=== PATIENT | male | born 1985 | race Caucasian/White ===

== ENCOUNTER 2016-08-20 20:30 | Emergency (ER) | payer SELFPAY ==
[~2016-08-20] VITALS: Ht 177.8 cm; Wt 72.0 kg
[2016-08-20 20:32] VITALS: BP 135/77; PULSE 89; RESP 16; TEMP 98.1; O2SAT 98
[2016-08-20] MEDS ORDERED: ACETAMINOPHEN/CODEINE 300 MG/30 MG TAB PO ONE (23:00)
[2016-08-20] MEDS ORDERED: PENICILLIN V POTASSIUM 500 MG TAB PO ONE (23:00)
[2016-08-20] MEDS ORDERED: IBUPROFEN 800 MG TAB PO ONE (23:00)
[2016-08-20] MEDS ORDERED: IBUP800T23 PO (23:01)
[2016-08-20] MEDS ORDERED: MAGICADU2 SWISH-SPIT (23:01)
[2016-08-20] MEDS ORDERED: PENI500T PO (23:01)
--- NOTE | 2016-08-20 23:07 | PD ---
HPI Chief Complaint: Oral / Dental Pain or Problem Time Seen by Provider: 22:58 Travel History International Travel<30 days: No Contact w/Intl Traveler<30days: No Traveled to known affect area: No History of Present Illness HPI 30-year-old male presents for evaluation of dental pain. Symptoms initially started about one month ago. The pain has waxed and waned since then. Over the past week the pain has steadily gotten worse which prompted evaluation. Pain is a throbbing pain which is constant and localized to the right maxillary first molar and the surrounding gumline. He denies any fevers. He denies any dental trauma. He endorses tobacco use. He has no other complaints. PFSH Past Medical History Medical History: Denies Significant Hx Tetanus Vaccination: < 5 Years Influenza Vaccination: No Past Surgical History Other Surgery: Yes (BILAT INGUINAL HERNIA SURGERY) Social History Alcohol Use: No Tobacco Use: Yes (0.5PPD) Substance Use: No Allergies-Medications (Allergen,Severity, Reaction): Coded Allergies: No Known Allergies (Unverified , 08/20/16) Reported Meds & Prescriptions Reported Meds & Active Scripts Active Magic Mouthwash Adult Liq (Multi-Ingredient Mouthwash/Gargle) 120 Ml Susp 10 Ml SWISH-SPIT ACHS Each 5mL contains: Nystatin 200,000units, Diphenhydramine 4.25mg, Viscous Lidocaine 10mg, Mariscal syrup 0.8 mL Ibuprofen 800 Mg Tab 800 Mg PO Q6HR PRN Penicillin V Potassium 500 Mg Tab 500 Mg PO Q6H 10 Days Review of Systems General / Constitutional: No: Fever HENT: Positive: Dental Difficulties, No: Congestion Respiratory: No: Cough Physical Exam Narrative GENERAL: Well-developed well-nourished male in no acute distress SKIN: Warm and dry. HEAD: Atraumatic. Normocephalic. EYES: Pupils equal and round. No scleral icterus. No injection or drainage. ENT: No nasal bleeding or discharge. Mucous membranes pink and moist. Right maxillary first molar is very decayed. The surrounding gumline is edematous, fluctuant. There is no trismus or facial edema. NECK: Trachea midline. No JVD. No lymphadenopathy, no submandibular edema Data Data Last Documented VS Vital Signs Date Time Temp Pulse Resp B/P Pulse Ox O2 Delivery O2 Flow Rate FiO2 08/20/16 20:32 98.1 89 16 135/77 98 Room Air Orders Penicillin V Potassium (Veetids) (08/20/16 23:00) Acetamin-Codeine 300-30 Mg (Tylenol-Code (08/20/16 23:00) Ibuprofen (Motrin) (08/20/16 23:00) MDM Medical Decision Making Medical Screen Exam Complete: Yes Emergency Medical Condition: Yes Medical Record Reviewed: Yes Differential Diagnosis Periodontal abscess, dental caries, pulpitis, pericoronitis Narrative Course Examination reveals a periodontal abscess and significant dental decay localized to the right maxillary first molar. After verbal consent was obtained , the periodontal abscess was incised and drained. The patient will be discharged with prescriptions for penicillin, ibuprofen and Magic mouthwash. He is given Tylenol with Codeine and ibuprofen and penicillin here. He is instructed to follow up with a dentist for definitive therapy. Procedures Procedure Narrative INCISION AND DRAINAGE OF PERIODONTAL ABSCESS: A number 11 scalpel was used to make a 0.5 -cm incision across the area of the abscess. Patient tolerated procedure well. Diagnosis Primary Impression: Periodontal abscess Additional Impression: Dental caries Additional Instructions: Medication as prescribed. Avoid tobacco products. Warm salt water gargle several times a day. Follow-up with a dentist for definitive therapy. Return for any emergent medical conditions. Med/Other Pt SpecificInfo: Prescription(s) given Scripts Ftcduzme-Qfeduybqmcutsrh-Hgkuwwrgu Liq (Magic Mouthwash Adult Liq)120 Ml Susp10 Ml SWISH-SPIT ACHS #120 ML Ref 1 Each 5mL contains: Nystatin 200,000units, Diphenhydramine 4.25mg, Viscous Lidocaine 10mg, Mariscal syrup 0.8 mL Prov:Edilson Thompson MD 08/20/16 Ibuprofen 800 Mg Bsw477 Mg PO Q6HR PRN (PAIN) #40 TAB Ref 0 Prov:Edilson Thompson MD 08/20/16 Penicillin V Potassium 500 Mg Dox488 Mg PO Q6H 10 Days Ref 0 Prov:Edilson Thompson MD 08/20/16 Disposition: 01 DISCHARGE HOME Condition: Stable Niall [place] Aug 20, 2016 23:06
== END 2016-08-21 00:04 | disposition home or self-care (01) ==
LOC: NEPK 23:15
DX: K05.219 Aggressive periodontitis, localized, unspecified severity (principal); K02.9 Dental caries, unspecified; Z72.0 Tobacco use
CPT/HCPCS: 41800